=== PATIENT | male | born 1965 | race Caucasian/White ===

== ENCOUNTER 2019-05-11 12:43 | Emergency (ER) | payer BC, SELFPAY ==
[2019-05-11 12:45] VITALS: BP 144/85; PULSE 75; RESP 16; TEMP 36.6; O2SAT 99; BMI 29.9
--- NOTE | 2019-05-11 14:27 | ED.DCSUM_ITS ---
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 Patient stated started with an itch in his right cheek 2 days ago and then progressed until he could not move his right side completely. He states his taste feels off. He still able to speak and swallow normally. He denies any paresthesias or numbness. He denies any other symptoms. He notes his prior episode of Michaels's palsy was 12 years ago on the left. He does state that his right eye feels dry and irritated. He noticed it was red. Patient is visiting from [place]. He is going back home tomorrow. Past Medical History - Allergies and Home Meds Allergies/Adverse Reactions: Allergies Penicillins [PCN] Allergy (Verified 05/11/19 12:44) Rash Sulfa (Sulfonamide Antibiotics) Allergy (Verified 05/11/19 12:44) Rash NSAIDS (Non-Steroidal Anti-Inflamma Adverse Reaction (Verified 05/11/19 12:44) Other ONLY HAS 1 KIDNEY Primary Care Physician: Care Physician,No Primary [Primary Care Provider] - Past Medical History: - - [place] Palsy, one kidney status post donation Surgical History: noncontributory Smoking Status: Never smoker Review of Systems General: Denies: Chills, Fever, Sweats Eyes: Reports: - - Right eye irritation. Denies: Visual changes - bilaterally, Diplopia ENT: Denies: Rhinorrhea, Sore throat Cardiovascular: Denies: Chest pain, Palpitations Respiratory: Denies: Dyspnea, Cough, Dyspnea on exertion Gastrointestinal: Denies: Abdominal pain, Nausea, Vomiting, Diarrhea, Melena, Hematochezia Genitourinary: Denies: Dysuria, Hematuria, Frequency Musculoskeletal: Denies: Back pain, Extremity Pain Skin: Denies: Rash, Wounds Neurological: Reports: - - Crease movement of the right side of his face. Denies: Headache, Weakness, Numbness Physical Exam Vital Signs/Narrative: Vital Signs Temp Pulse Resp BP Pulse Ox 05/11/19 12:45 98 F 75 16 144/85 H 99 Inital Vital Signs reviewed: Yes General: Well nourished, Well developed, No Acute Distress Head: Normocephalic, Atraumatic Eyes: Perrl, EOMI, - - Mild- Conjunctival injection of the right eye ENT: Moist mucous membranes, No rhinorrhea, TM's clear Neck: Supple, Nontender Cardiovascular: Regular rate, Regular rhythm, No murmurs Respiratory: No distress, CTA bilaterally, Chest nontender Abdomen: Soft, Nontender, Nondistended, Normal bowel sounds Extremities: Nontender, No edema Skin: Normal color, No rash Neurological: Alert, Oriented x3, Normal Strength, Normal Sensation, Normal Gait, - - Paralysis of the facial muscles including the forehead, all other cranial nerves appear to be intact. Negative for: Parasthesia Psychological: Normal affect, Normal Mood Diagnostic/Tx/Re-eval - Medical Decision Making Patient appears to have a Michaels's palsy. He appears nontoxic in no acute distress. Has no other associated neurologic symptoms/deficits. He will be started on a Medrol Dosepak. He is counseled on patching of his eye. He will follow-up with his PCP back in [place]. He is instructed to use eyedrops as needed to prevent dry eye. Patient is counseled on signs and symptoms requiring return to the emergency room. Patient verbalizes agreement and understand this plan. Patient discharged home in stable and improved condition. ED Disposition - Plan for ED Patient: Disposition: Home or Assisted Living Diagnosis: Michaels's paralysis Instructions: Michaels's Palsy Prescriptions: MethylPREDNISolone DosePak [Medrol DosePak] 4 mg PO UD #1 box Prescription Printed Additional Instructions: Please follow-up with your primary care doctor later this week. Use [id number] lubricating eyedrops as needed for dry eye. Is very important that you patch her eye at night to prevent scratching your eye in her sleep.
[2019-05-11 14:38] VITALS: RESP 14
== END 2019-05-11 14:53 | disposition home or self-care (01) ==
PROVIDERS: Emergency Provider Emergency Medicine
DX: G51.0 Bell's palsy (principal)
CPT/HCPCS: 99282